=== PATIENT | female | born 1930 | race Caucasian/White ===

== ENCOUNTER 2016-11-04 08:09 | Emergency (ER) | payer MEDICARE ==
--- NOTE | 2016-11-04 08:28 | CT ---
EXAM DESCRIPTION: CT head without contrast CLINICAL HISTORY: Gallbladder and speech. Left-sided facial droop. COMPARISON: 07/18/2013 TECHNIQUE: Noncontrast spiral CT of the brain. This exam was performed according to our departmental dose-optimization program, which includes automated exposure control, adjustment of the mA and/or kV according to patient size and/or use of iterative reconstruction technique FINDINGS: No intracranial hemorrhage, infarction or mass lesion. White matter disease bilateral cerebral hemispheres stable in appearance. Cerebral volume loss. Atherosclerotic vascular calcifications. Suspicion of aneurysm anterior cerebral artery axial image 14. Similar appearance on prior study No calvarial or skullbase fracture. No fluid in the paranasal sinuses or mastoid air cells IMPRESSION: Negative acute noncontrast head CT CT is insensitive for early evaluation of acute stroke. If there is clinical concern for acute ischemia, an MRI may be considered. Electronically signed by: Cesar Rosado MD 11/04/2016 8:27 AM CDT
[2016-11-04 08:47] VITALS: TEMP 97.5
[2016-11-04] MEDS ORDERED: ASPIRIN TABLET 325 MG TAB PO ONE (08:48)
--- NOTE | 2016-11-04 08:59 | RAD ---
EXAM DESCRIPTION: Chest,1 View CLINICAL HISTORY: 86 years, Female, STROKE SX COMPARISON: December 27, 2015 FINDINGS: Adequate inspiration. Some pleural parenchymal scarring at the left base is about the same. Dual-lead pacemaker with borderline heart size. IMPRESSION: Stable chronic lung change with borderline heart size. Electronically signed by: Ministerio Glass MD 11/04/2016 8:58 AM CDT
--- NOTE | 2016-11-04 09:37 | ED.PDOC ---
History of Present Illness - General Chief Complaint: Neuro Symptoms/Deficits Stated Complaint: garbled speech, right sided facial droop Time Seen by Provider: 11/04/16 09:31 Source: family Exam Limitations: clinical condition - History of Present Illness Initial Comments: PT PRESENTS TO THE ED VIA EMS FOR AMS DESCRIBED CONFUSION AND INABILITY TO SPEAK. PT NOTIFIED HER DAUGHTER AT 0730 THIS AM. PT WAS LAST SEEN NORMAL LAST NIGHT. HPI AND ROS LIMITED DUE TO PTS CONDITION. Timing/Duration: unknown Severity: moderate Improving Factors: nothing Worsening Factors: nothing Associated Symptoms: confusion, slurred speech Allergies/Adverse Reactions: Allergies Sulfa Antibiotics Allergy (Unverified 07/18/13 18:40) Review of Systems - Review of Systems Constitutional: States: see HPI EENTM: States: see HPI Respiratory: States: see HPI Cardiology: States: see HPI Gastrointestinal/Abdominal: States: see HPI Musculoskeletal: States: see HPI Skin: States: see HPI Neurological: States: see HPI Endocrine: States: see HPI Hematologic/Lymphatic: States: see HPI Past Medical History (General) - Patient Medical History Hx Stroke: No Hx of COPD: Yes Hx Cardiac Disorders: Yes - PACEMAKER Hx Congestive Heart Failure: No Hx Hypertension: Yes Hx Diabetes: No Surgical History: pacemaker - Vaccination History Hx Influenza Vaccination: Yes Hx Pneumococcal Vaccination: Yes - Social History Hx Tobacco Use: Yes Family Medical History - Family History Mother Family History: Unknown Living Status: Unknown Physical Exam - Physical Exam General Appearance: Alert, No apparent distress, Well Developed, Well Groomed, Well Hydrated Eye Exam: bilateral normal ENT Exam: normal ENT inspection, hearing grossly normal Neck: supple, normal inspection Respiratory: lungs clear, normal breath sounds, no respiratory distress Cardiovascular/Chest: regular rate, rhythm, no edema, no murmur Gastrointestinal/Abdominal: non tender, soft Back Exam: normal inspection Extremities Exam: normal range of motion Mental Status: alert reach truck operator Exam: normal hearing, PERRL, abnormal speech - GARBLED SPEECH WITH EXPRESSIVE APHASIA, facial droop - ON RIGHT Motor/Sensory: no sensory deficit, pronator drift (R), weak motor strength RUE Skin Exam: normal color, warm/dry Progress - Progress Progress: 11/04/16 09:[address] FINDINGS DISCUSSED WITH PT AND FAMILY. THEY AGREE WITH PLAN TO TRANSFER TO [facility]. - Results/Orders Results/Orders: 11/04/16 08:35 Telemetry .ONCE 08/30/17 08:45 EKG STAT Laboratory Results - last 24 hr 11/04/16 11/04/16 11/04/16 09:00 09:00 09:00 WBC 5.1 RBC 4.57 Hgb 12.2 Hct 36.9 MCV 80.7 L MCH 26.6 L MCHC 33.0 RDW 14.1 Plt Count 222 MPV 7.4 Absolute Neuts (auto) 3.10 Absolute Lymphs (auto) 1.10 Absolute Monos (auto) 0.30 Absolute Eos (auto) 0.50 H Absolute Basos (auto) 0.10 Neutrophils % 61.4 Lymphocytes % 22.3 Monocytes % 5.1 Eosinophils % 9.4 H Basophils % 1.8 PT 10.7 INR 0.950 PTT (SP) 32.0 Sodium 139 Potassium 4.3 Chloride 105 Carbon Dioxide 27 Anion Gap 11.3 L BUN 27 H Creatinine 0.98 BUN/Creatinine Ratio 27.6 H POC Glucose Random Glucose 114 H Serum Osmolality 283.5 Calcium 9.4 Total Bilirubin 0.4 AST 20 ALT 12 Alkaline Phosphatase 61 Creatine Kinase 55 CK-MB (CK-2) 0.8 CK-MB (CK-2) % Not Reportable Troponin I < 0.02 Serum Total Protein 7.1 Albumin 4.3 Globulin 2.8 Albumin/Globulin Ratio 1.5 11/04/16 09:00 WBC RBC Hgb Hct MCV MCH MCHC RDW Plt Count MPV Absolute Neuts (auto) Absolute Lymphs (auto) Absolute Monos (auto) Absolute Eos (auto) Absolute Basos (auto) Neutrophils % Lymphocytes % Monocytes % Eosinophils % Basophils % PT INR PTT (SP) Sodium Potassium Chloride Carbon Dioxide Anion Gap BUN Creatinine BUN/Creatinine Ratio POC Glucose 110 H Random Glucose Serum Osmolality Calcium Total Bilirubin AST ALT Alkaline Phosphatase Creatine Kinase CK-MB (CK-2) CK-MB (CK-2) % Troponin I Serum Total Protein Albumin Globulin Albumin/Globulin Ratio - EKG/XRAY/CT CT: HEAD CT Ordered: Yes - NO ACUTE FINDINGS PER RAD CT Interpretation Call Back: Yes Stroke Information - Onset of Symptoms Symptoms of Stroke: Aphasia, Weakness of limb Stroke Onset of Symptoms Date: 11/04/16 Stroke Onset of Symptoms Time: 00:00 - UNKNOWN TIME - Contraindications t-PA Contraindication: Medical Contraindication Departure - Departure Clinical Impression: Cerebrovascular accident Time of Disposition: 09:48 Disposition: Transfer to Hospital Condition: Fair Departure Forms: ED Discharge - Pt. Copy, Patient Portal Self Enrollment Referrals: Reji Gould MD [Primary Care Provider] - 1-2 Weeks Transfer to Outside Facility - Transfer Information Accepting Provider:: DR. SILVA Accepting Facility: [facility] Reason for Transfer: required specialist not available - NEUROLOGIST
[2016-11-04] MEDS ORDERED: ASPIRIN (CHEWABLE) 81 MG TAB PO ONE (09:49)
[2016-11-04 10:16] VITALS: BP 146/87; O2SAT 91
== END 2016-11-04 10:15 | disposition short-term general hospital (02) ==
LOC: ER 08:09
DX: I63.9 Cerebral infarction, unspecified (principal); J44.9 Chronic obstructive pulmonary disease, unspecified; I10 Essential (primary) hypertension; Z95.0 Presence of cardiac pacemaker; Z87.891 Personal history of nicotine dependence; Z88.2 Allergy status to sulfonamides

== ENCOUNTER 2016-12-21 15:47 | Emergency (ER) | payer MEDICARE ==
--- NOTE | 2016-12-21 16:41 | RAD ---
EXAM DESCRIPTION: Chest,2 Views CLINICAL HISTORY: 86 years Female sob COMPARISON: 11/04/2016 FINDINGS: The cardiomediastinal silhouette appears unremarkable. No consolidating infiltrates or pleural effusions. No pneumothorax. Lungs are hyperinflated compatible with COPD. Pacemaker in unchanged position. There is a small amount of scarring in the lingula which appears similar to the previous study with elevation the left hemidiaphragm. IMPRESSION: No acute abnormality is identified. Pulmonary hyperinflation consistent with COPD Electronically signed by: Michell Ng 12/21/2016 4:39 PM CDT
[2016-12-21] MEDS ORDERED: IPRATROPIUM/ALBUTEROL 3 ML VIAL NEB ONE (16:48)
[2016-12-21] MEDS ORDERED: predniSONE 20 MG TAB PO ONE (16:48)
[2016-12-21] MEDS ORDERED: levoFLOXacin 500 MG TAB PO ONE (16:48)
--- NOTE | 2016-12-21 17:19 | ED.PDOC ---
History of Present Illness - General Chief Complaint: Respiratory Problem Stated Complaint: shortness of breath Time Seen by Provider: 12/21/16 15:59 Source: patient Exam Limitations: no limitations - History of Present Illness Initial Comments: The patient is an 86-year-old female presenting to the emergency room secondary to increasing shortness of breath over the last 24-48 hours. She has been having to wear her oxygen continuously over that time which she normally does not have to. The cough is mildly productive. No fevers. No runny nose. No sore throat. No chest pain or palpitations. She does have long-standing COPD. Timing/Duration: 24 hours Severity: mild Improving Factors: nothing Worsening Factors: nothing Associated Symptoms: cough, shortness of breath Allergies/Adverse Reactions: Allergies Codeine Allergy (Verified 12/21/16 16:04) Home Medications: Ambulatory Orders levoFLOXacin [Levaquin] 500 mg PO DAILY #5 tab 12/21/16 predniSONE [Prednisone] 20 mg PO DAILY #3 tab 12/21/16 Review of Systems - Review of Systems Review of Systems: 12/21/16 17:18 for new or changing symptoms over baseline: Constitutional: States: malaise EENTM: States: no symptoms reported Respiratory: States: cough, short of breath Cardiology: States: no symptoms reported Gastrointestinal/Abdominal: States: no symptoms reported Genitourinary: States: no symptoms reported Musculoskeletal: States: no symptoms reported Skin: States: no symptoms reported Neurological: States: no symptoms reported Endocrine: States: no symptoms reported All other Systems: No Change from Baseline Past Medical History (General) - Patient Medical History Hx Stroke: No Hx of COPD: Yes Hx Cardiac Disorders: Yes - PACEMAKER Hx Congestive Heart Failure: No Hx Hypertension: Yes Hx Diabetes: No Surgical History: Hysterectomy, other - Vaccination History Hx Influenza Vaccination: Yes Hx Pneumococcal Vaccination: Yes - Social History Hx Tobacco Use: Yes Hx Alcohol Use: No Hx Substance Use: No Hx Substance Use Treatment: No Hx Depression: No - Activities of Daily Living Hospice Agency (if applicable):: None - Female History Patient is a Female of Child Bearing Age (10 -59 yrs old): No Patient : No Family Medical History - Family History Mother Family History: Unknown Living Status: Unknown Physical Exam - Physical Exam General Appearance: Alert, Comfortable, No apparent distress Eye Exam: bilateral normal Ears, Nose, Throat: hearing grossly normal, normal ENT inspection, normal pharynx Neck: full range of motion, supple Respiratory: chest non-tender, no respiratory distress, no accessory muscle use , rales - mild rales at the right lung base. Fair air movement. 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 The patient is going to be placed on Levaquin 500 milligrams by mouth daily for 5 days. She is going to be placed on prednisone 20 mg daily for 3 days. She has received initial doses of both of these here. She is to use her breathing treatments 4 times daily at least for the next 4 days. She is to keep her oxygen on at all times at 2 L/m, this appears to maintain an oxygen saturation of around 90-93%. She should follow up with her primary care doctor towards the end of the week. ER warnings were given for any significant worsening. - Results/Orders Results/Orders: Laboratory Tests 12/21/16 12/21/16 12/21/16 16:15 16:15 16:15 WBC 5.3 RBC 4.41 Hgb 11.8 L Hct 35.7 L MCV 80.9 L MCH 26.7 L MCHC 33.2 RDW 14.2 Plt Count 231 MPV 7.5 Absolute Neuts (auto) 3.30 Absolute Lymphs (auto) 1.10 Absolute Monos (auto) 0.30 Absolute Eos (auto) 0.60 H Absolute Basos (auto) 0.10 Neutrophils % 61.6 Lymphocytes % 19.8 L Monocytes % 5.1 Eosinophils % 11.9 H Basophils % 1.6 PT 10.7 INR 0.950 PTT (SP) 29.5 Sodium 138 Potassium 4.3 Chloride 102 Carbon Dioxide 29 Anion Gap 11.3 L BUN 26 H Creatinine 1.02 BUN/Creatinine Ratio 25.5 H Random Glucose 115 H Serum Osmolality 281.4 Calcium 9.2 Magnesium 1.9 Total Bilirubin 0.2 AST 17 ALT 11 Alkaline Phosphatase 60 Creatine Kinase 70 CK-MB (CK-2) 1.1 CK-MB (CK-2) % Not Reportable Troponin I < 0.02 B-Natriuretic Peptide 25.1 Serum Total Protein 6.7 Albumin 4.0 Globulin 2.7 Albumin/Globulin Ratio 1.5 chest x-ray shows no definitive infiltrates. There does appear to be some atelectasis or scarring at the left lung base. Chronic changes of COPD present. Departure - Departure Clinical Impression: COPD with exacerbation Disposition: Discharge to Home or Self Care Condition: Fair Departure Forms: ED Discharge - Pt. Copy, Patient Portal Self Enrollment Instructions: DI for Chronic Obstructive Pulmonary Disease Diet: regular diet Activity: increase activity as tolerated Referrals: Reji Gould MD [Primary Care Provider] - 1-5 Days Prescriptions: levoFLOXacin [Levaquin] 500 mg PO DAILY #5 tab predniSONE [Prednisone] 20 mg PO DAILY #3 tab Home Medications: Ambulatory Orders levoFLOXacin [Levaquin] 500 mg PO DAILY #5 tab 12/21/16 predniSONE [Prednisone] 20 mg PO DAILY #3 tab 12/21/16 Additional Instructions: the patient is a 86-year-old female presenting with what appears to be a mild COPD exacerbation. The patient is going to be placed on Levaquin 500 milligrams by mouth daily for 5 days. She is going to be placed on prednisone 20 mg daily for 3 days. She has received initial doses of both of these here. She is to use her breathing treatments 4 times daily at least for the next 4 days. She is to keep her oxygen on at all times at 2 L/m, this appears to maintain an oxygen saturation of around 90-93%. She should follow up with her primary care doctor towards the end of the week. ER warnings were given for any significant worsening.
[2016-12-21 17:27] VITALS: BP 129/75; TEMP 98.5
[2016-12-21 18:12] VITALS: O2SAT 96
== END 2016-12-21 17:40 | disposition home or self-care (01) ==
LOC: ER 15:47
DX: J44.1 Chronic obstructive pulmonary disease with (acute) exacerbation (principal); Z99.81 Dependence on supplemental oxygen; I10 Essential (primary) hypertension; Z95.0 Presence of cardiac pacemaker; Z88.6 Allergy status to analgesic agent; Z87.891 Personal history of nicotine dependence
CPT/HCPCS: 36415; 71020; 80053; 82550; 82553; 83735; 83880; 84484; 85025; 85610; 85730; 87040; 94640; J7512; J7620

== ENCOUNTER → 2017-07-12 | Outpatient (CLI) | payer MEDICARE ==
[~2017-07-12] MED LIST: ALBUTEROL SULFATE 2.5 MG/3 ML VIAL NEB ONE
--- NOTE | 2017-07-12 16:07 | CT ---
EXAM DESCRIPTION: Chest w/o Contrast : Computed Tomography. CLINICAL HISTORY: DYSPNEA COMPARISON: CT scan of the chest without contrast 01/15/2016. TECHNIQUE: Spiral-axial scans at 5.0 mm intervals through the lungs and thorax without IV contrast. 2.5 mm lung algorithm axial reconstructions. Coronal and sagittal 2.0 Mm reconstructions. Total Exam DLP: 345.54mGy-cm. This exam was performed according to our departmental dose-optimization program which includes automated exposure control, adjustment of the mA and/or kV according to patient size and/or use of iterative reconstruction technique; to reduce radiation dose to as low as reasonably achievable (ALARA). FINDINGS: Pleural thickening and scarring in the anterior lateral right lower lobe anterior and lateral segments. 2-3 small bilateral subpleural soft tissue nodules in the bilateral upper lobes, 3 mm or less in diameter. Largest of these can be seen on series 4, image 31 and is stable since the prior study. Intimal scarring in the lateral right lower lobe base. Evaluation of the soft tissues limited due to lack of IV contrast. Pacemaker superior anterior left chest. Pacing leads right atrium and right ventricle. Atherosclerotic changes in the aorta and proximal brachiocephalic vessels. Minimal dilation of the ascending aortic arch. Coronary artery calcifications. No soft tissue masses in the chest wall axilla mediastinum or hilum. The peritoneal space included in the subdiaphragmatic region shows normal size and density of spleen and adrenal glands. No free fluid. Abdominal aortic calcifications. Thoracic scoliosis with spondylosis at multiple levels. Arthrosis bilateral shoulders. IMPRESSION: Small bilateral subpleural nodules near the apex of the upper lobes are stable since the prior study. Bilateral areas of parenchymal scarring toward the lung bases, and small centrilobular emphysematous changes more prevalent in the upper lobes. Electronically signed by: Mars Gonzalez MD 07/12/2017 4:06 PM CDT
== END ==
LOC: CT 09:21
PROVIDERS: ATTEND Internal Medicine
DX: R06.09 Other forms of dyspnea (principal); J44.9 Chronic obstructive pulmonary disease, unspecified; R91.1 Solitary pulmonary nodule
CPT/HCPCS: 71250; J7611

== ENCOUNTER → 2018-04-07 | Outpatient (CLI) | payer MEDICARE | LOC: GMAE 10:19 | PROVIDERS: ATTEND Family Medicine | DX: I10 Essential (primary) hypertension (principal) ==

== ENCOUNTER 2018-06-17 15:53 | Inpatient (IN) | payer MEDICARE ==
[2018-06-17] MEDS ORDERED: IPRATROPIUM/ALBUTEROL 3 ML VIAL NEB ONE (16:32)
--- NOTE | 2018-06-17 16:36 | ED.PDOC ---
History of Present Illness - General Chief Complaint: General Stated Complaint: weakness Time Seen by Provider: 06/17/18 16:30 Source: patient Exam Limitations: no limitations - History of Present Illness Initial Comments: PT PRESENTS TO THE ED DUE TO GENERALIZED WEAKNESS THAT BEGAN TODAY. PT STATES SHE HAS BEEN COUGHING WITH SOB FOR THE PAST 5 DAYS. 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 PT DENIES FEVER, CHILLS, CHEST PAIN. Allergies/Adverse Reactions: Allergies Codeine Allergy (Verified 12/21/16 16:04) Home Medications: Ambulatory Orders levoFLOXacin [Levaquin] 500 mg PO DAILY #5 tab 12/21/16 predniSONE [Prednisone] 20 mg PO DAILY #3 tab 12/21/16 Review of Systems - Review of Systems Constitutional: Denies: chills, fever EENTM: States: throat pain. Denies: nose congestion Respiratory: States: see HPI, cough, short of breath Cardiology: Denies: chest pain, palpitations Gastrointestinal/Abdominal: Denies: nausea, vomiting Genitourinary: Denies: dysuria, frequency Musculoskeletal: Denies: joint pain, joint swelling Skin: Denies: dryness, lesions Neurological: Denies: headache, numbness Endocrine: States: no symptoms reported Hematologic/Lymphatic: States: no symptoms reported Past Medical History (General) - Patient Medical History Hx Stroke: No Hx of COPD: Yes Hx Cardiac Disorders: Yes - PACEMAKER Hx Congestive Heart Failure: No Hx Hypertension: Yes Hx Diabetes: No - Vaccination History Hx Influenza Vaccination: Yes Hx Pneumococcal Vaccination: Yes - Social History Hx Tobacco Use: Yes Hx Alcohol Use: No Hx Substance Use: No Hx Substance Use Treatment: No Hx Depression: No - Female History Patient : No Family Medical History - Family History Mother Family History: Unknown Living Status: Unknown Physical Exam - Physical Exam General Appearance: Alert, No apparent distress, Well Developed, Well Groomed, Well Hydrated Eye Exam: bilateral normal Ears, Nose, Throat: hearing grossly normal, pharyngeal erythema Neck: non-tender, full range of motion, supple Respiratory: no respiratory distress, rales - AT BILATERAL BASES Cardiovascular/Chest: regular rate, rhythm, no murmur Gastrointestinal/Abdominal: non tender, soft Extremity: non-tender, no pedal edema Neurologic: alert, normal mood/affect, oriented x 3 Skin Exam: normal color, warm/dry Progress - Progress Progress: 06/17/18 17:34 PT RESTING COMFORTABLY, REQUESTING FOOD AND DRINK. LABS AND DIAGNOSTICS DISCUSSED. - Results/Orders Results/Orders: Laboratory Tests 06/17/18 06/17/18 06/17/18 16:45 16:45 16:45 WBC 11.6 H RBC 4.55 Hgb 12.2 Hct 37.9 MCV 83.4 MCH 26.9 L MCHC 32.3 L RDW 13.7 Plt Count 221 MPV 7.6 Absolute Neuts (auto) 10.90 H Absolute Lymphs (auto) 0.30 L Absolute Monos (auto) 0.40 Absolute Eos (auto) 0.00 Absolute Basos (auto) 0.00 Neutrophils % 93.9 H Lymphocytes % 2.2 L Monocytes % 3.7 Eosinophils % 0.1 L Basophils % 0.1 Sodium 133 L Potassium 4.7 Chloride 99 L Carbon Dioxide 23 Anion Gap 15.7 BUN 23 H Creatinine 1.02 BUN/Creatinine Ratio 22.5 H Random Glucose 143 H Serum Osmolality 272.5 L Calcium 9.5 Total Bilirubin 0.6 AST 22 ALT 13 Alkaline Phosphatase 83 Creatine Kinase 367 H* CK-MB (CK-2) 1.8 CK-MB (CK-2) % Not Reportable Troponin I < 0.02 B-Natriuretic Peptide 110.0 H Serum Total Protein 7.1 Albumin 3.6 Globulin 3.5 Albumin/Globulin Ratio 1.0 L - EKG/XRAY/CT EKG: Sinus - ELECTRONIC VENTRICULAR PACEMAKER @98BPM, AL 206, QRS 84, QTC 436, Unchanged from - 11/04/16 Departure - Departure Clinical Impression: Bilateral pneumonia, Generalized muscle weakness, Fall from standing Time of Disposition: 17:35 Disposition: Admit Patient Condition: Fair Departure Forms: ED Discharge - Pt. Copy, Patient Portal Self Enrollment Referrals: MINNA CURRAN MD [Primary Care Provider] - 1-2 Weeks Home Medications: Ambulatory Orders levoFLOXacin [Levaquin] 500 mg PO DAILY #5 tab 12/21/16 predniSONE [Prednisone] 20 mg PO DAILY #3 tab 12/21/16 Decision To Admit - Decistion To Admit Decision to Admit Reason: Admit from ER Decision to Admit Date: 06/17/18 Decision to Admit Time: 17:35 - CASE DISCUSSED WITH HUGO SOTO NP WHO AGREES TO ADMIT
--- NOTE | 2018-06-17 16:55 | RAD ---
EXAM DESCRIPTION: Chest,1 View CLINICAL HISTORY: 88 years Female cough/sob COMPARISON: December 21, 2016. TECHNIQUE: AP view of the chest was obtained. FINDINGS: Cardiac silhouette is enlarged. Central vessels are mildly increased. Pacemaker leads identified. Electrodes supralateral left hemithorax. Patient is rotated to the left. Airspace opacities infrahilar regions bilaterally. Eventration right hemidiaphragm. Small bilateral pleural effusions. No pneumothorax. Degenerative changes shoulders bilaterally. IMPRESSION: Enlarged heart with mild congestive heart failure new when correlated with the prior study. New infiltrate versus atelectatic change or pulmonary congestion lower lungs bilaterally. Electronically signed by: Renay Nguyen MD 06/17/2018 4:52 PM CDT
[2018-06-17] MEDS ORDERED: AZITHROMYCIN IV 500 MG in SODIUM CHLORIDE 0.9% 250ML 250 ML IVPB ONE (17:17)
[2018-06-17] MEDS ORDERED: cefTRIAXone SODIUM 1 GM in SODIUM CHL 0.9% 50ML MIN-BAG+ 50 ML IVPB ONE (17:17)
[2018-06-17] MEDS ORDERED: cefTRIAXone SODIUM 1 GM VIAL ONE (17:26)
[2018-06-17] MEDS ORDERED: SODIUM CHL 0.9% 50ML MIN-BAG+ 50 ML IVPB ONE (17:26)
[2018-06-17] MEDS ORDERED: AZITHROMYCIN IV 500 MG VIAL IVPB ONE (18:05)
[2018-06-17] MEDS ORDERED: SODIUM CHLORIDE 0.9% 250ML 250 ML ONE (18:05)
--- NOTE | 2018-06-17 20:06 | HP ---
SUPERVISING PHYSICIAN: Cesar Castaneda MD CHIEF COMPLAINT: Weakness and cold symptoms. HISTORY OF PRESENT ILLNESS: This is an 88 year-old female patient who lives alone and is usually very independent. This week she said she has just felt poorly all week long, has not been out of the house since Wednesday. Wednesday, she actually had a sore throat but she used some salt water gargle and that cleared up. Over the week, she has progressively gotten weaker and weaker. There were no complaints of fever but she did have a mildly productive cough and some mild shortness of breath. Today, she was extremely weak and she got up from her chair and was going to take her coffee cup into the kitchen and she fell into her sofa and was so weak she could not get up. She scooted over on the couch until she could get to the phone and called 911. In the Emergency Room, her initial vital signs showed a temperature of 99.1 with a heart rate of 95, blood pressure 128/76. Respiratory rate was 22, 02 saturation 92%. Her lab was completed and shows a sodium of 133, potassium 4.7, chloride 99, carbon dioxide 23, BUN 23, creatinine 1.02. Glucose 143, serum osmolality 272.5. Creatinine kinase 367. Her other cardiac enzymes were negative. BNP 110. WBCs were 11,600, she did have a left shift on differential. Hemoglobin 12.2, hematocrit 37.9, both normal. Blood cultures were drawn. Chest x-ray was completed and shows enlarged heart with mild congestive heart failure, new when correlated with prior studies. New infiltrate versus atelectatic change or pulmonary congestion of the lower lungs bilaterally. She was also given several breathing treatments as well as started her on Rocephin and azithromycin and I was called for hospital admission. PAST MEDICAL HISTORY: 1. 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 2. Chronic obstructive pulmonary disease on home oxygen as needed. 3. Irregular heart rate requiring pacemaker implantation. 4. Hypertension. 5. Hyperlipidemia. PAST SURGICAL HISTORY: 1. Appendectomy. 2. Hernia repair. 3. Hysterectomy. 4. Cervical spine surgery. 5. Pacemaker implantation. CURRENT MEDICATIONS: As per the EMR and awaiting verification. ALLERGIES: CODEINE. LISINOPRIL (COUGH) FAMILY HISTORY: Noncontributory. SOCIAL HISTORY: She lives in [place], she lives alone. She has a past history of tobacco use. She quit smoking in 1971. There is no ETOH or illicit drug use. REVIEW OF SYSTEMS: GENERAL: Negative for fever, chills or weight changes. HEENT: Positive for throat pain, negative for sinus symptoms, ear pain or vision changes. RESPIRATORY: Positive for coughing and shortness of breath. Negative for wheezing. CARDIAC: Negative for chest pain, palpitations, tachycardia. GI: Positive for mild nausea, negative for vomiting, abdominal pain, diarrhea or constipation. : Negative for dysuria, polyuria, hematuria. MUSCULOSKELETAL: Negative for arthralgias, myalgias. SKIN: Negative for lesions or rashes. NEURO: Negative for headache, seizures or dizziness. PHYSICAL EXAMINATION: VITAL SIGNS: Temperature 98, heart rate 70, blood pressure 128/76, respiratory rate 20, 02 saturation 96% on 2 liters nasal cannula. GENERAL: This is an 88 year-old female patient who looks younger than her stated age. She is in no acute distress. HEENT: Normocephalic and atraumatic. Pupils are equal and reactive. Oropharynx is clear. NECK: Supple without mass. CHEST: Scattered rhonchi throughout, very diminished at the bases. She is slightly tachypneic at times and has to speak in short phrases. There is equal rise and fall of the chest on inspiration and expiration. CARDIOVASCULAR: Regular rate and rhythm. ABDOMEN: Soft, nondistended, non-tender. Bowel sounds are positive. EXTREMITIES: No cyanosis, clubbing, or edema. NEUROLOGIC: She is awake, alert and oriented x3. Cranial nerves II through XII are grossly intact. LABORATORY/FILMS: As per the history of present illness. ASSESSMENT: 1. Sepsis secondary to bilateral lower lobe pneumonia, most likely community acquired. She also has a history of chronic obstructive pulmonary disease and is oxygen dependent. Her admitting temperature was 99.1, heart rate was 95, respiratory rate 22 and her WBCs were 11,600. 2. Chronic obstructive pulmonary disease with mild exacerbation. 3. Weakness, most likely secondary to #1 that contributed to a nontraumatic same-level fall into patient's sofa earlier today. 4. Hypertension, stable. 5. Coronary artery disease. 6. History of CVA approximately one year ago with no residual defects. 7. 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 PLAN: We will admit the patient to the hospital. I have initiated the pneumonia guidelines. I will continue with her azithromycin and Rocephin as well as aggressive pulmonary hygiene including nebulizer treatments scheduled and as needed. I will repeat her lab and x-rays in the morning, monitor her cultures closely. I have put her on a PPI for ulcer prophylaxis as well as Lovenox for DVT prophylaxis and will continue to monitor closely and follow as needed. #[id number] MTDD
[2018-06-17] MEDS ORDERED: ALBUTEROL SULFATE 2.5 MG/3 ML VIAL NEB PRN (20:31)
[2018-06-17] MEDS ORDERED: ACETAMINOPHEN 325 MG TAB PO PRN (20:31)
[2018-06-17] MEDS ORDERED: ONDANSETRON INJ 4 MG/2 ML VIAL IV PRN (20:31)
[2018-06-17] MEDS ORDERED: SODIUM CHLORIDE 0.9% (FLUSH) 10 ML SYG IV PRN (20:31)
[2018-06-17] MEDS ORDERED: IV SET AND CAP CHANGE INJ INJ SCH (21:00)
[2018-06-17] MEDS: ENOXAPARIN SODIUM 40 MG/0.4 ML SYG SUBCU SCH (22:34)
[2018-06-17] MEDS: SODIUM CHLORIDE 0.9% (FLUSH) 10 ML SYG IV SCH (22:35)
[2018-06-17] MEDS: traMADol HCL 50 MG TAB PO SCH (23:48)
[2018-06-18] MEDS: PANTOPRAZOLE SODIUM IV 40 MG VIAL IV SCH (06:24)
--- NOTE | 2018-06-18 07:17 | RAD ---
EXAM: XR Chest, 2 Views CLINICAL HISTORY: The patient is 88 years old and is Female; Pneumonia TECHNIQUE: Frontal and lateral views of the chest. COMPARISON: Chest radiograph from 06/17/2018 FINDINGS: LUNGS: There is minimal bibasilar atelectasis which is improved compared to the prior study. The lungs are otherwise clear. PLEURAL SPACE: There is a small left pleural effusion. No pneumothorax. HEART: No significant enlargement of the cardiac silhouette. MEDIASTINUM: Unremarkable. BONES/JOINTS: The bones are unchanged. TUBES, LINES AND DEVICES: Left-sided pacemaker in place, with the leads unchanged in position. IMPRESSION: 1. Small left pleural effusion. 2. Interval improvement in bibasilar atelectasis. Electronically signed by: Yanira García MD 06/18/2018 7:14 AM CDT
[2018-06-18] MEDS ORDERED: SODIUM CHL 0.9% 50ML MIN-BAG+ 50 ML IVPB ONE (09:11)
[2018-06-18] MEDS ORDERED: cefTRIAXone SODIUM 1 GM VIAL ONE (09:12)
[2018-06-18] MEDS: IPRATROPIUM/ALBUTEROL 3 ML VIAL NEB SCH ×4 (09:12→21:10)
[2018-06-18] MEDS: traMADol HCL 50 MG TAB PO SCH ×2 (09:31→20:03)
[2018-06-18] MEDS: cefTRIAXone SODIUM 1 GM in SODIUM CHL 0.9% 50ML MIN-BAG+ 50 ML IVPB SCH (09:32)
[2018-06-18] MEDS: ASPIRIN (ENTERIC COATED) 81 MG TAB PO SCH (09:32)
[2018-06-18] MEDS: NON-FORMULARY MEDICATION 1 EA MIS (Fluticasone-Umeclidinium-Vilan [Trelegy Ellipta 100-62. IN SCH (09:34)
[2018-06-18] MEDS: SODIUM CHLORIDE 0.9% (FLUSH) 10 ML SYG IV SCH ×2 (10:32→20:07)
[2018-06-18] MEDS ORDERED: SODIUM CHLORIDE 0.9% 250ML 250 ML ONE (11:57)
[2018-06-18] MEDS ORDERED: AZITHROMYCIN IV 500 MG VIAL IVPB ONE (11:58)
[2018-06-18] MEDS: AZITHROMYCIN IV 500 MG in SODIUM CHLORIDE 0.9% 250ML 250 ML IVPB SCH (12:08)
[2018-06-18] MEDS: ENOXAPARIN SODIUM 40 MG/0.4 ML SYG SUBCU SCH (20:04)
[2018-06-18] MEDS: ATORVASTATIN 10 MG TAB PO SCH (20:07)
[2018-06-19] MEDS: PANTOPRAZOLE SODIUM IV 40 MG VIAL IV SCH (06:23)
[2018-06-19] MEDS ORDERED: SODIUM CHL 0.9% 50ML MIN-BAG+ 50 ML IVPB ONE (07:20)
[2018-06-19] MEDS ORDERED: cefTRIAXone SODIUM 1 GM VIAL ONE (07:21)
[2018-06-19] MEDS: traMADol HCL 50 MG TAB PO SCH ×2 (08:11→21:43)
[2018-06-19] MEDS: cefTRIAXone SODIUM 1 GM in SODIUM CHL 0.9% 50ML MIN-BAG+ 50 ML IVPB SCH (08:11)
[2018-06-19] MEDS: ASPIRIN (ENTERIC COATED) 81 MG TAB PO SCH (08:13)
[2018-06-19] MEDS: SODIUM CHLORIDE 0.9% (FLUSH) 10 ML SYG IV SCH ×2 (08:13→21:39)
[2018-06-19] MEDS: IPRATROPIUM/ALBUTEROL 3 ML VIAL NEB SCH ×4 (08:51→20:00)
[2018-06-19] MEDS: NON-FORMULARY MEDICATION 1 EA MIS (Fluticasone-Umeclidinium-Vilan [Trelegy Ellipta 100-62. IN SCH (08:54)
--- NOTE | 2018-06-19 10:08 | PN ---
DATE: 06/18/18 SUPERVISING PHYSICIAN: Cesar Castaneda MD SUBJECTIVE: The patient is sitting up in her bed in her room. She is eating a meal. She has no complaints except for weakness, although she is improved from yesterday but she continues to feel very weak. She also has some shortness of breath with exertion but other than that, no chest pain, nausea or vomiting. OBJECTIVE: VITAL SIGNS: Temperature 98.8, heart rate 85, blood pressure 101/62, respiratory rate 20, 02 saturation 91% on room air. CHEST: There are a few scattered rhonchi but no expiratory wheezing or crackles. CARDIAC: Regular rate and rhythm. GI: Abdomen soft, nondistended, non-tender. Bowel sounds are positive. NEURO: She is awake, alert, and oriented x3. LABORATORY: Electrolytes are basically within normal limits. BUN is slightly high at 30. WBCs have normalized to 97,500 with hemoglobin 11.3 and hematocrit 34.7. She does have a left shift on differential. Urinalysis shows moderate leukocyte esterase with 3 to 5 urine RBCs, too numerous to count urine WBCs and 4+ urine bacteria. Urine culture is pending. Preliminary blood cultures show no growth after 24 hours. Sputum culture is pending. CHEST X-RAY: 1. Small left pleural effusion. 2. Interval improvement in bibasilar atelectasis. All other labs and films have been reviewed via the EMR. ASSESSMENT: 1. Sepsis secondary to bilateral lower lobe pneumonia, most likely community acquired. She also has a history of chronic obstructive pulmonary disease and is oxygen dependent. Her admitting temperature was 99.1, heart rate was 95, respiratory rate 22 and WBCs were 11,600. 2. Chronic obstructive pulmonary disease with mild exacerbation. 3. Urinary tract infection. 4. Weakness, most likely secondary to #1 that also contributed to a nontraumatic same-level fall into patient's sofa on date of admission. 5. Hypertension, stable. 6. Coronary artery disease. 7. History of CVA approximately one year ago with no residual defects. 8. 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 PLAN: We will continue present supportive care. She will continue on Rocephin and azithromycin. The Rocephin should cover for her urinary tract infection but we will watch her clinical response. I have ordered labs for in the morning but will hold for chest x-ray for a day or so. She is improving clinically as well as on her x-ray. Will continue to encourage good pulmonary hygiene, monitor her cultures and will follow her closely and treat as needed. #[id number] [facility]
[2018-06-19] MEDS ORDERED: AZITHROMYCIN IV 500 MG VIAL IVPB ONE (11:03)
[2018-06-19] MEDS ORDERED: SODIUM CHLORIDE 0.9% 250ML 250 ML ONE (11:03)
[2018-06-19] MEDS: AZITHROMYCIN IV 500 MG in SODIUM CHLORIDE 0.9% 250ML 250 ML IVPB SCH (11:19)
[2018-06-19] MEDS ORDERED: diphenhydrAMINE HCL 25 MG CAP PO PRN (12:49)
--- NOTE | 2018-06-19 14:05 | PN ---
DATE: 06/19/18 SUPERVISING PHYSICIAN: Cesar Castaneda M.D. SUBJECTIVE: The patient is sitting up in bed. Her daughter is at the bedside. She feels much improved since yesterday. She has no complaints of shortness of breath, chest pain, nausea or vomiting. She does complain of difficulty sleeping but she always has that. She also continues complaints of extreme weakness. I explained we will consult Physical Therapy tomorrow for strengthening. OBJECTIVE: VITAL SIGNS: Temperature 98.4, heart rate 85, blood pressure 124/74, respiratory rate 16, O2 sat 96% on 2 liters nasal cannula. RESPIRATORY: A few scattered rhonchi, otherwise clear to auscultation. CARDIAC: Regular rate and rhythm. GASTROINTESTINAL: Abdomen is soft, nondistended, non-tender. Bowel sounds are positive. EXTREMITIES: No clubbing, cyanosis or edema. NEUROLOGIC: She is awake, alert and oriented times three. LABORATORY: WBCs are 7.3 with hemoglobin 11.3, hematocrit 34.4. She does have a left shift on her differential. Electrolytes are basically within normal limits. BUN is slightly high at 26, creatinine kinase is 748. Urine culture is pending. Preliminary blood cultures show no growth after 24 hours. She also has a sputum culture pending. All other labs and films have been reviewed via the EMR. ASSESSMENT: 1. Sepsis secondary to bilateral lower lobe pneumonia, most likely community acquired. She also has a history of chronic obstructive pulmonary disease and is oxygen dependent. Her admitting temperature was 99.1, heart rate was 95, respiratory rate 22 and WBCs were 11,600. 2. Chronic obstructive pulmonary disease with mild exacerbation. 3. Urinary tract infection. 4. Weakness, most likely secondary to #1 that also contributed to a nontraumatic same-level fall into patient's sofa on date of admission. 5. Hypertension, stable. 6. Coronary artery disease. 7. History of CVA approximately one year ago with no residual defects. 8. 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 PLAN: We will continue present supportive care. At this point her lab is okay but will repeat those as well as a CPK in the morning. I will also get another chest x-ray. Physical Therapy has been consulted. I have encouraged good pulmonary hygiene. I also have given her some Melatonin and Benadryl for sleep. Will monitor her cultures closely. Will follow the patient and treat as needed. #[id number] MTDD
[2018-06-19] MEDS ORDERED: VALSARTAN 80 MG TAB PO SCH (21:00)
[2018-06-19] MEDS ORDERED: hydroCHLOROthiazide 12.5 MG CAP PO SCH (21:00)
[2018-06-19] MEDS ORDERED: VALSARTAN HYDROCHLOROTHIAZIDE PO SCH (21:00)
[2018-06-19] MEDS ORDERED: MELATONIN 3 MG TAB PO SCH (21:00)
[2018-06-19] MEDS: ATORVASTATIN 10 MG TAB PO SCH (21:38)
[2018-06-19] MEDS: ENOXAPARIN SODIUM 40 MG/0.4 ML SYG SUBCU SCH (21:39)
[2018-06-20] MEDS: PANTOPRAZOLE SODIUM IV 40 MG VIAL IV SCH (06:16)
[2018-06-20] MEDS ORDERED: cefTRIAXone SODIUM 1 GM VIAL ONE (06:59)
[2018-06-20] MEDS ORDERED: SODIUM CHL 0.9% 50ML MIN-BAG+ 50 ML IVPB ONE (06:59)
--- NOTE | 2018-06-20 07:17 | RAD ---
EXAM: Two view chest. INDICATION: Pneumonia. COMPARISON: Chest x-ray: 06/18/2018. FINDINGS: Cardiac silhouette: Unremarkable. Shante: Unremarkable. Lobar consolidation: None. Pleural effusion: Small left Pneumothorax: None. Other: A left chest wall pacemaker is in place. Bones: Demineralized Other: None. IMPRESSION: No significant change compared to the prior exam. Electronically signed by: Donald Carrillo MD 06/20/2018 7:14 AM CDT Workstation: [id number]
[2018-06-20] MEDS: traMADol HCL 50 MG TAB PO SCH (08:00)
[2018-06-20] MEDS: ASPIRIN (ENTERIC COATED) 81 MG TAB PO SCH (08:00)
[2018-06-20] MEDS: cefTRIAXone SODIUM 1 GM in SODIUM CHL 0.9% 50ML MIN-BAG+ 50 ML IVPB SCH (08:00)
[2018-06-20] MEDS: SODIUM CHLORIDE 0.9% (FLUSH) 10 ML SYG IV SCH (08:00)
[2018-06-20] MEDS: NON-FORMULARY MEDICATION 1 EA MIS (Fluticasone-Umeclidinium-Vilan [Trelegy Ellipta 100-62. IN SCH (08:25)
[2018-06-20] MEDS: IPRATROPIUM/ALBUTEROL 3 ML VIAL NEB SCH ×2 (08:25→13:05)
[2018-06-20 10:16] VITALS: BP 112/67; TEMP 97.6
[2018-06-20] MEDS ORDERED: SODIUM CHLORIDE 0.9% 250ML 250 ML ONE (10:58)
[2018-06-20] MEDS ORDERED: AZITHROMYCIN IV 500 MG VIAL IVPB ONE (10:58)
[2018-06-20] MEDS: AZITHROMYCIN IV 500 MG in SODIUM CHLORIDE 0.9% 250ML 250 ML IVPB SCH (11:20)
[2018-06-20 14:05] VITALS: O2SAT 90
--- NOTE | 2018-06-21 08:27 | DS ---
SUPERVISING PHYSICIAN: Meghana Mary MD ADMISSION DIAGNOSIS: 1. Sepsis secondary to bilateral lower lobe pneumonia, most likely community acquired. She also has a history of chronic obstructive pulmonary disease and is oxygen dependent. Her admitting temperature was 99.1, heart rate was 95, respiratory rate 22 and her WBCs were 11,600. 2. Chronic obstructive pulmonary disease with mild exacerbation. 3. Weakness, most likely secondary to #1 that contributed to a nontraumatic same-level fall into patient's sofa earlier today. 4. Hypertension, stable. 5. Coronary artery disease. 6. History of CVA approximately one year ago with no residual defects. 7. 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 DISCHARGE DIAGNOSIS: 1. Sepsis secondary to bilateral lower lobe pneumonia, most likely community acquired. She also has a history of chronic obstructive pulmonary disease and is oxygen dependent. Her admitting temperature was 99.1, heart rate was 95, respiratory rate 22 and WBCs were 11,600. The patient improving with parenteral antibiotics. 2. Chronic obstructive pulmonary disease with mild exacerbation secondary to #1 and community acquired pneumonia, showing good response to clinical treatment with parenteral antibiotics. 3. Urinary tract infection, culture results pending. 4. Weakness, secondary to #1 and deconditioning secondary to a same-level fall, nontraumatic. 5. Hypertension, stable. 6. Coronary artery disease. 7. History of previous cerebrovascular accident approximately one year ago with no residual deficit. 8. 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 REASON FOR ADMISSION: This is an 88 year-old female patient who lives alone and is usually very independent. This week she said she has just felt poorly all week long, has not been out of the house since Wednesday. Wednesday, she actually had a sore throat but she used some salt water gargle and that cleared up. Over the week, she has progressively gotten weaker and weaker. There were no complaints of fever but she did have a mildly productive cough and some mild shortness of breath. Today, she was extremely weak and she got up from her chair and was going to take her coffee cup into the kitchen and she fell into her sofa and was so weak she could not get up. She scooted over on the couch until she could get to the phone and called 911. In the Emergency Room, her initial vital signs showed a temperature of 99.1 with a heart rate of 95, blood pressure 128/76. Respiratory rate was 22, 02 saturation 92%. Her lab was completed and shows a sodium of 133, potassium 4.7, chloride 99, carbon dioxide 23, BUN 23, creatinine 1.02. Glucose 143, serum osmolality 272.5. Creatinine kinase 367. Her other cardiac enzymes were negative. BNP 110. WBCs were 11,600, she did have a left shift on differential. Hemoglobin 12.2, hematocrit 37.9, both normal. Blood cultures were drawn. Chest x-ray was completed and shows enlarged heart with mild congestive heart failure, new when correlated with prior studies. New infiltrate versus atelectatic change or pulmonary congestion of the lower lungs bilaterally. She was also given several breathing treatments as well as started her on Rocephin and azithromycin and I was called for hospital admission. LABORATORY: White count on admission was 11,600, at discharge was 4,300. Hemoglobin and hematocrit were stable at 10.5 and 32.7 respectively. Platelet count 229,000. Differential did show a left shift initially on admission which was resolving prior to discharge from Acute Care to Swing Bed. Initial chemistries showed low sodium of 133, otherwise electrolytes were within normal limits. At discharge, electrolytes showed normal sodium and other electrolytes within normal limits with a discharge BUN 22, creatinine 0.95. CPK did go up to a maximum of 748 which was returning to baseline levels at 413 prior to discharge. Troponin was less than 0.02. BNP was slightly elevated at 110. Liver functions were all within normal limits. Urinalysis showed a moderate leukocyte esterase. Microscopic revealed 3 to 5 RBCs, too numerous to count WBCs, 1+ bacteria. MICROBIOLOGY: Final culture results pending. Blood culture remained negative after 3 days. Sputum culture was pending. RADIOLOGY: She had a chest x-ray on admission and per radiologic interpretation showed enlarged heart with mild congestive heart failure, new when correlated with previous study. There was note of new infiltrate versus atelectatic change, pulmonary congestion of lower lungs bilaterally. Final x-ray on date of discharge from Acute Care to Swing Bed of two-view chest per radiologic interpretation showed no significant change compared to previous x-rays. There was no lobar consolidation, pleural effusion was noted to be small on the left, no pneumothorax. HOSPITAL COURSE: Ms. Abdalla was admitted for acute exacerbation of chronic obstructive pulmonary disease and started on treatment at time of admission with Rocephin and azithromycin. She had aggressive pulmonary hygiene. She showed good clinical response to treatment, but continued to have ongoing weakness, but was responding to physical therapy. It was felt she was not quite safe enough yet to discharge home. Therefore, the decision was to maybe discharge once medically stable from Acute Care to Swing Bed for ongoing physical therapy. Today, the patient was found to be medically stable to continue oral therapy and further treatment as an outpatient and continue with Swing Bed admission for physical therapy. PLAN: Today, Ms. Abdalla was discharged from Acute Care on 06/20/18 and admitted to Swing Bed on the same day for ongoing physical therapy to ensure the patient's safety once discharged home. #[id number] [facility]
== END 2018-06-20 14:09 | disposition swing bed (61) | DRG 871 ==
LOC: ER 15:53 → MS 20:06
PROVIDERS: ADMIT Nurse Practitioner Acute Care; ATTEND Nurse Practitioner Family
DX: A41.9 Sepsis, unspecified organism (principal); J18.1 Lobar pneumonia, unspecified organism; J44.0 Chronic obstructive pulmonary disease with (acute) lower respiratory infection; J44.1 Chronic obstructive pulmonary disease with (acute) exacerbation; N39.0 Urinary tract infection, site not specified; W19.XXXA Unspecified fall, initial encounter; I10 Essential (primary) hypertension; R53.1 Weakness; I25.10 Atherosclerotic heart disease of native coronary artery without angina pectoris; M62.81 Muscle weakness (generalized); E78.5 Hyperlipidemia, unspecified; Z60.2 Problems related to living alone; Z99.81 Dependence on supplemental oxygen; Z86.73 Personal history of transient ischemic attack (TIA), and cerebral infarction without residual deficits; Z95.0 Presence of cardiac pacemaker; Y92.009 Unspecified place in unspecified non-institutional (private) residence as the place of occurrence of the external cause; Z88.5 Allergy status to narcotic agent; Z88.8 Allergy status to other drugs, medicaments and biological substances

== ENCOUNTER 2018-06-20 14:14 | Inpatient (IN) | payer MEDICARE ==
--- NOTE | 2018-06-20 14:15 | HP ---
SUPERVISING PHYSICIAN: Meghana Mary MD CHIEF COMPLAINT: Weakness status post treatment for chronic obstructive pulmonary disease exacerbation. HISTORY OF PRESENT ILLNESS: Ms. Abdalla is an 88-year-old, female patient who lives alone and is very independent. She was admitted to Acute Care on 06/17/18 as she sustained a same-level fall and was found to have sepsis secondary to bilateral lower lobe pneumonia with exacerbation of chronic obstructive pulmonary disease. She was started on treatment for her pneumonia with azithromycin and Rocephin and aggressive pulmonary hygiene. She responded well to treatment, but was showing ongoing disuse myopathy and was not deemed safe by physical therapy to continue in the outpatient setting. Therefore, decision was made to admit the patient to Swing Bed for ongoing physical therapy and rehabilitation efforts with continued oral treatment for her underlying pneumonia. She was discharged from Acute Care and admitted to Swing Bed on the same day. PAST MEDICAL HISTORY: 1. 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 2. Chronic obstructive pulmonary disease on home oxygen as needed. 3. Irregular heart rate requiring pacemaker implantation. 4. Hypertension. 5. Hyperlipidemia. PAST SURGICAL HISTORY: 1. Appendectomy. 2. Hernia repair. 3. Hysterectomy. 4. Cervical spine surgery. 5. Pacemaker implantation. CURRENT MEDICATIONS: 1. Diovan 80-12.5 mg, 80 mg at bedtime. 2. Krill oil 1 capsule daily. 3. Trelegy Ellipta 100-62.5-25 mcg inhaled daily. 4. Cranberry-vitamin C supplement 1 capsule daily. 5. Calcium supplement 1 tablet daily. 6. Lipitor 10 mg daily. 7. Aspirin 81 mg daily. 8. Tramadol 50 mg b.i.d. 9. Centrum multivitamin 1 tablet daily. 10. Cefdinir 300 mg b.i.d. ALLERGIES: CODEINE. LISINOPRIL (COUGH). FAMILY HISTORY: Noncontributory. SOCIAL HISTORY: The patient lives in [place] by herself. She is very independent. She has a past history of tobacco use, but quit in 1971. She uses no illicit drugs oar laceration. REVIEW OF SYSTEMS: CONSTITUTIONAL: Negative for any fevers, chills, or weight change. HEENT: Negative for sore throats, earaches, nasal congestion, vision changes. RESPIRATORY: Positive for ongoing cough. Negative for shortness of breath, wheezing. CARDIOVASCULAR: Negative for chest pain, palpitations or tachycardia. GASTROINTESTINAL: Negative for nausea, vomiting, diarrhea, constipation or abdominal pain. GENITOURINARY: Negative for dysuria, hematuria, polyuria. MUSCULOSKELETAL: Positive for general myalgias, but negative for arthralgias. Positive for ongoing weakness. SKIN: Negative for lesions or rashes. NEUROLOGIC: Negative for headaches, seizures, dizziness. PHYSICAL EXAMINATION: VITAL SIGNS: On admission to [facility]: Temperature 97.6. Pulse 83. Blood pressure 112/67. Respiratory rate 20. Oxygen saturation 90% to 93% on nasal cannula at 2 liters at rest. Admission weight 63.5 kg. GENERAL: The patient is resting comfortably and appears to be in no acute distress. She just finished physical therapy. HEENT: Tympanic membranes clear bilaterally. Oropharynx is pink, moist without any lesions. NECK: Supple, nontender with full range of motion. No jugular venous distention noted. RESPIRATORY: Lung sounds diminished towards the bases and showing better aeration. No obvious wheezes or rales. CARDIOVASCULAR: Regular rate and rhythm. ABDOMEN: Soft, nontender. Positive bowel sounds. EXTREMITIES: There is no edema. NEUROLOGIC: The patient is alert and oriented times three. Cranial nerves II- XII are grossly intact. LABORATORY: Pending CBC and CMP on admission. RADIOLOGY: Pending chest x-ray on admission to [facility]. ASSESSMENT: 1. 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 2. Sepsis secondary to bilateral lower lobe pneumonia, responding well to treatment on Acute Care, showing no signs of sepsis currently. 3. Chronic obstructive pulmonary disease with recent exacerbation secondary to #2, responding well to treatment, now on oral antibiotics. 4. Hypertension, stable. 5. Coronary artery disease. 6. History of previous cerebrovascular accident approximately one year ago with no residual deficits. 7. 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 PLAN: The patient was discharged from Acute Care and admitted on the same day to [facility] for ongoing physical therapy and rehabilitation. Physical therapy has been consulted for evaluation and treatment. She will continue antibiotics with cefdinir. We will monitor final culture results both on sputum and urine and target antibiotic therapy as needed. The patient is showing good clinical response to previous treatment. She will be on DVT prophylaxis with Lovenox as per protocol. We will resume her home medications once they have been updated and verified. We will continue her breathing treatments p.r.n. and scheduled. We will continue bronchial hygiene while on Swing Bed. We will anticipate her length of stay to be at least 3 days. Hopefully, she can be discharged by Wednesday. Until then, we will continue to monitor and treat as needed. #[id number] MTDD
[2018-06-20] MEDS ORDERED: TEMAZEPAM 15 MG CAP PO PRN (14:40)
[2018-06-20] MEDS ORDERED: ACETAMINOPHEN 500 MG TAB PO PRN (14:40)
[2018-06-20] MEDS ORDERED: MAGNESIUM HYDROXIDE 30 ML UD PO PRN (14:40)
[2018-06-20] MEDS ORDERED: SODIUM PHOS/BIPHOS ENEMA ADULT 133 ML BTTL PR PRN (14:40)
[2018-06-20] MEDS: LEVALBUTEROL NEBS 1.25 MG/3 ML VIAL INH SCH (16:55)
[2018-06-20] MEDS ORDERED: SODIUM CHLORIDE 0.65% NASAL SPRAY 45 ML BTTL BNAS PRN (18:37)
[2018-06-20] MEDS: hydroCHLOROthiazide 12.5 MG CAP PO SCH (20:43)
[2018-06-20] MEDS: VALSARTAN 80 MG TAB PO SCH (20:43)
[2018-06-20] MEDS: ATORVASTATIN 10 MG TAB PO SCH (20:43)
[2018-06-20] MEDS: traMADol HCL 50 MG TAB PO SCH (20:43)
[2018-06-20] MEDS: CEFDINIR 300 MG CAP PO SCH (20:43)
[2018-06-20] MEDS: LEVALBUTEROL NEBS 1.25 MG/3 ML VIAL INH PRN (20:47)
[2018-06-21] MEDS: LEVALBUTEROL NEBS 1.25 MG/3 ML VIAL INH SCH ×4 (08:42→16:34)
[2018-06-21] MEDS: FLUTICASONE UMECLIDINIUM VILANTEROL IN SCH (08:43)
[2018-06-21] MEDS: traMADol HCL 50 MG TAB PO SCH ×2 (09:18→21:05)
[2018-06-21] MEDS: ENOXAPARIN SODIUM 40 MG/0.4 ML SYG SUBCU SCH ×2 (09:19→09:32)
[2018-06-21] MEDS: CEFDINIR 300 MG CAP PO SCH ×2 (09:19→21:04)
[2018-06-21] MEDS: DOCUSATE SODIUM 100 MG CAP PO SCH ×2 (09:19→09:32)
[2018-06-21] MEDS: MULTIPLE VITAMINS W/ MINERALS 1 EA TAB PO SCH (09:19)
[2018-06-21] MEDS: ASPIRIN (ENTERIC COATED) 81 MG TAB PO SCH (09:19)
[2018-06-21] MEDS: LEVALBUTEROL NEBS 1.25 MG/3 ML VIAL INH PRN (20:12)
[2018-06-21] MEDS: ATORVASTATIN 10 MG TAB PO SCH (21:04)
[2018-06-21] MEDS: hydroCHLOROthiazide 12.5 MG CAP PO SCH (21:05)
[2018-06-21] MEDS: VALSARTAN 80 MG TAB PO SCH (21:05)
[2018-06-22] MEDS: LEVALBUTEROL NEBS 1.25 MG/3 ML VIAL INH SCH ×2 (08:57)
[2018-06-22] MEDS: FLUTICASONE UMECLIDINIUM VILANTEROL IN SCH (09:00)
[2018-06-22] MEDS: ENOXAPARIN SODIUM 40 MG/0.4 ML SYG SUBCU SCH (09:01)
[2018-06-22] MEDS: ASPIRIN (ENTERIC COATED) 81 MG TAB PO SCH (09:02)
[2018-06-22] MEDS: DOCUSATE SODIUM 100 MG CAP PO SCH (09:02)
[2018-06-22] MEDS: CEFDINIR 300 MG CAP PO SCH ×2 (09:02→20:55)
[2018-06-22] MEDS: MULTIPLE VITAMINS W/ MINERALS 1 EA TAB PO SCH (09:02)
[2018-06-22] MEDS: traMADol HCL 50 MG TAB PO SCH ×2 (09:05→20:56)
[2018-06-22] MEDS: LEVALBUTEROL NEBS 1.25 MG/3 ML VIAL NEB SCH (20:36)
[2018-06-22] MEDS: hydroCHLOROthiazide 12.5 MG CAP PO SCH (20:55)
[2018-06-22] MEDS: VALSARTAN 80 MG TAB PO SCH (20:55)
[2018-06-22] MEDS: ATORVASTATIN 10 MG TAB PO SCH (20:56)
[2018-06-23] MEDS: LEVALBUTEROL NEBS 1.25 MG/3 ML VIAL NEB SCH ×2 (07:57→20:15)
[2018-06-23] MEDS: FLUTICASONE UMECLIDINIUM VILANTEROL IN SCH (07:57)
[2018-06-23] MEDS: ASPIRIN (ENTERIC COATED) 81 MG TAB PO SCH (08:16)
[2018-06-23] MEDS: CEFDINIR 300 MG CAP PO SCH ×2 (08:16→20:36)
[2018-06-23] MEDS: traMADol HCL 50 MG TAB PO SCH ×2 (08:16→20:36)
[2018-06-23] MEDS: DOCUSATE SODIUM 100 MG CAP PO SCH (08:17)
[2018-06-23] MEDS: MULTIPLE VITAMINS W/ MINERALS 1 EA TAB PO SCH (08:17)
[2018-06-23] MEDS: ENOXAPARIN SODIUM 40 MG/0.4 ML SYG SUBCU SCH (08:17)
[2018-06-23] MEDS ORDERED: POLYVINYL ALCOHOL 1.4% OPHTH SOL 1 DROP BOTH_EYES PRN (18:10)
[2018-06-23] MEDS ORDERED: POLYVINYL ALCOHOL 1.4% OPHTH SOL 1 DROP ONE (18:13)
[2018-06-23] MEDS: VALSARTAN 80 MG TAB PO SCH (20:36)
[2018-06-23] MEDS: hydroCHLOROthiazide 12.5 MG CAP PO SCH (20:36)
[2018-06-23] MEDS: ATORVASTATIN 10 MG TAB PO SCH (20:36)
[2018-06-24] MEDS: MULTIPLE VITAMINS W/ MINERALS 1 EA TAB PO SCH (08:06)
[2018-06-24] MEDS: CEFDINIR 300 MG CAP PO SCH (08:06)
[2018-06-24] MEDS: ASPIRIN (ENTERIC COATED) 81 MG TAB PO SCH (08:06)
[2018-06-24] MEDS: traMADol HCL 50 MG TAB PO SCH (08:06)
[2018-06-24] MEDS: ENOXAPARIN SODIUM 40 MG/0.4 ML SYG SUBCU SCH (08:07)
[2018-06-24] MEDS: DOCUSATE SODIUM 100 MG CAP PO SCH (08:07)
[2018-06-24] MEDS: LEVALBUTEROL NEBS 1.25 MG/3 ML VIAL NEB SCH (09:10)
[2018-06-24] MEDS: FLUTICASONE UMECLIDINIUM VILANTEROL IN SCH (09:10)
[2018-06-24 10:12] VITALS: BP 107/62; TEMP 97.7; O2SAT 97
--- NOTE | 2018-06-26 20:29 | DS ---
SUPERVISING PHYSICIAN: Medardo Mary M.D. ADMISSION DIAGNOSIS: 1. 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 2. Sepsis secondary to bilateral lower lobe pneumonia, responding well to treatment on Acute Care, showing no signs of sepsis currently. 3. Chronic obstructive pulmonary disease with recent exacerbation secondary to #2, responding well to treatment, now on oral antibiotics. 4. Hypertension, stable. 5. Coronary artery disease. 6. History of previous cerebrovascular accident approximately one year ago with no residual deficits. 7. 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 DISCHARGE DIAGNOSIS: 1. 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 2. Sepsis secondary to bilateral lower lobe pneumonia, responding well to treatment on Acute Care, showing no signs of sepsis currently. 3. Chronic obstructive pulmonary disease with recent exacerbation secondary to #2, responding well to treatment, now on oral antibiotics. 4. Hypertension, stable. 5. Coronary artery disease. 6. History of previous cerebrovascular accident approximately one year ago with no residual deficits. 7. 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 HISTORY OF PRESENT ILLNESS: Ms. Abdalla is an 88-year-old, female patient who lives alone and is very independent. She was admitted to Acute Care on 06/17/18 as she sustained a same-level fall and was found to have sepsis secondary to bilateral lower lobe pneumonia with exacerbation of chronic obstructive pulmonary disease. She was started on treatment for her pneumonia with azithromycin and Rocephin and aggressive pulmonary hygiene. She responded well to treatment, but was showing ongoing disuse myopathy and was not deemed safe by physical therapy to continue in the outpatient setting. Therefore, decision was made to admit the patient to Swing Bed for ongoing physical therapy and rehabilitation efforts with continued oral treatment for her underlying pneumonia. She was discharged from Acute Care and admitted to Swing Bed on the same day. LABORATORY: No laboratory or radiographic studies were obtained while on Swing Bed. HOSPITAL COURSE: Ms. Abdalla was admitted to Swing Bed for ongoing physical therapy for weakness to ensure that she was safe once discharged home. She did well with physical therapy and on day of discharge was felt well enough to continue with outpatient management. PLAN: Ms. Abdalla was discharged on 06/24/18 with instructions to followup with Dr. Mary in 7 to 10 days. She was to have arrangements for in house PT with [facility]. She was to resume her home medications as previously instructed and return to the hospital should she have any worsening or concerning symptoms. Diet at discharge was regular diet as tolerated. Activity is as tolerated per Physical Therapy. No new medications were prescribed at discharge. Condition at discharge was stable and improving. DISPOSITION: The patient was discharged home to home health in the care of her family with [facility]. #[id number] MTDD
== END 2018-06-24 11:08 | disposition home health service (06) | DRG 557 ==
LOC: UNDOADMIN 14:14 → MS 14:14
PROVIDERS: ADMIT Nurse Practitioner Family; ATTEND Nurse Practitioner Family
DX: M62.50 Muscle wasting and atrophy, not elsewhere classified, unspecified site (principal); J18.9 Pneumonia, unspecified organism; J44.1 Chronic obstructive pulmonary disease with (acute) exacerbation; J44.0 Chronic obstructive pulmonary disease with (acute) lower respiratory infection; I10 Essential (primary) hypertension; I25.10 Atherosclerotic heart disease of native coronary artery without angina pectoris; E78.5 Hyperlipidemia, unspecified; Z66 Do not resuscitate; Z86.73 Personal history of transient ischemic attack (TIA), and cerebral infarction without residual deficits; Z95.0 Presence of cardiac pacemaker; Z60.2 Problems related to living alone; Z79.82 Long term (current) use of aspirin; Z79.891 Long term (current) use of opiate analgesic; Z79.899 Other long term (current) drug therapy; Z88.5 Allergy status to narcotic agent; Z88.8 Allergy status to other drugs, medicaments and biological substances; Z87.891 Personal history of nicotine dependence